=== PATIENT | male | born 1955 | race Caucasian/White ===

== ENCOUNTER 2019-11-03 08:49 | Emergency (ER) | payer OTHER ==
--- NOTE | 2019-11-03 10:43 | ER ---
Nurse's Notes [facility] Name: Benny Dukes Age: 63 yrs Sex: Male : 1955 Arrival Date: 11/03/2019 Time: 08:51 Bed 18 Private MD: Rishi Garcia Diagnosis: Malaise and fatigue Presentation: 11/03 09:02 Presenting complaint: Patient states: Body aches and scratchy throat that began ss yesterday. has been having similar symptoms x 4 days. Transition of care: patient was not received from another setting of care. Onset of symptoms was November 02, 2019. Risk Assessment: Do you want to hurt yourself or someone else? Patient reports no desire to harm self or others. Initial Sepsis Screen: Does the patient meet any 2 criteria? No. Patient's initial sepsis screen is negative. Does the patient have a suspected source of infection? No. Patient's initial sepsis screen is negative. Care prior to arrival: None. 09:02 Method Of Arrival: Ambulatory ss 09:02 Acuity: NICHOLAS 4 ss Historical: - Allergies: 09:03 No Known Allergies; ss - Immunization history:: Flu vaccine is not up to date. - Social history:: Smoking status: Patient/guardian denies using tobacco. - Ebola Screening: : Patient denies exposure to infectious person Patient denies travel to an Ebola-affected area in the 21 days before illness onset. Screenin:25 Abuse screen: Denies threats or abuse. Denies injuries from another. Nutritional wh screening: No deficits noted. Tuberculosis screening: No symptoms or risk factors identified. Fall Risk None identified. Assessment: 09:25 General: Appears in no apparent distress. Behavior is calm, cooperative, appropriate wh for age. Pain: Complains of pain in Sore throat. Neuro: Level of Consciousness is awake, alert, obeys commands, Oriented to person, place, time, situation, Appropriate for age. Cardiovascular: Heart tones S1 S2. Respiratory: Airway is patent Respiratory effort is even, unlabored, Respiratory pattern is regular, symmetrical, Breath sounds are clear bilaterally. GI: Abdomen is flat, non-distended. : No signs and/or symptoms were reported regarding the genitourinary system. EENT: Throat is pink. Derm: Skin is intact, is healthy with good turgor, Skin is pink, warm \T\ dry. normal. Musculoskeletal: Circulation, motion, and sensation intact. 10:21 Reassessment: Patient appears in no apparent distress at this time. No changes from previously documented assessment. Patient and/or family updated on plan of care and expected duration. Pain level reassessed. Patient is alert, oriented x 3, equal unlabored respirations, skin warm/dry/pink. Vital Signs: 09:03 BP 137 / 92; Pulse 90; Resp 17; Temp 98.3(TE); Pulse Ox 98% on R/A; Weight 86.18 kg; Height 5 ft. 6 in. (167.64 cm); 10:21 BP 130 / 71; Pulse 75; Resp 18; Pulse Ox 99% on R/A; wh 09:03 Body Mass Index 30.67 (86.18 kg, 167.64 cm) ED Course: 08:51 Patient arrived in ED. rg4 08:52 Rishi Garcia MD is Private Physician. 4 09:03 Triage completed. 09:03 Arm band placed on right wrist. 09:06 Celine Moncada is Primary Nurse. 09:10 Noah Shah FNP-C [facility]. la1 09:10 Jake Mccarty MD is Attending Physician. la1 09:25 Patient has correct armband on for positive identification. Bed in low position. Call light in reach. Side rails up X 1. Pulse ox on. NIBP on. 09:34 Flu and/or RSV swab sent to lab. Strep swab sent to lab. 5 09:34 Strep Sent. 5 09:34 Flu Sent. [facility] 10:59 No provider procedures requiring assistance completed. Patient did not have IV access during this emergency room visit. Administered Medications: No medications were administered Outcome: 10:43 Discharge ordered by . la1 10:59 Discharged to home ambulatory, with family. 10:59 Condition: stable 10:59 Discharge instructions given to patient, Instructed on discharge instructions, follow up and referral plans. POC URTI Demonstrated understanding of instructions, follow-up care, POC 11:00 Patient left the ED. Signatures: Deidre Roa, RN RN Noah Shah FNP-C FNP-Jewels Muller 4 Kerri Miles [facility] [place], [place] wh
--- NOTE | 2019-11-03 10:44 | EDPHYS ---
Physician Documentation [facility] Name: Benny Dukes Age: 63 yrs Sex: Male : 1955 Arrival Date: 11/03/2019 Time: 08:51 Bed 18 Private MD: Rishi Garcia ED Physician Jake Mccarty HPI: 11/03 09:39 This 63 yrs old Male presents to ER via Ambulatory with complaints of Body la1 Aches, Sore Throat. 09:39 Onset: The symptoms/episode began/occurred 2 day(s) ago. Associated signs and symptoms: la1 Pertinent negatives: abdominal pain, chest pain, constipation, fever, headache. Modifying factors: The patient symptoms are alleviated by nothing, the patient symptoms are aggravated by nothing. The patient has not experienced similar symptoms in the past. The patient has not recently seen a physician. pt reports body aches, malaise for the last two days. ill with similar symptoms. Historical: - Allergies: 09:03 No Known Allergies; ss - Immunization history:: Flu vaccine is not up to date. - Social history:: Smoking status: Patient/guardian denies using tobacco. - Ebola Screening: : Patient denies exposure to infectious person Patient denies travel to an Ebola-affected area in the 21 days before illness onset. ROS: 09:39 Constitutional: positive for malaise and body aches Eyes: Negative for injury, pain, la1 redness, and discharge, ENT: positive for sore throat Neck: Negative for injury, pain, and swelling, Cardiovascular: Negative for chest pain, palpitations, and edema, Respiratory: Negative for shortness of breath, cough, wheezing, and pleuritic chest pain, Abdomen/GI: Negative for abdominal pain, nausea, vomiting, diarrhea, and constipation, Back: Negative for injury and pain, MS/Extremity: Negative for injury and deformity, Neuro: Negative for headache, weakness, numbness, tingling, and seizure. Exam: 09:40 Constitutional: This is a well developed, well nourished patient who is awake, alert, la1 and in no acute distress. Head/Face: Normocephalic, atraumatic. Eyes: Pupils equal round and reactive to light, extra-ocular motions intact. Periorbital areas with no swelling, redness, or edema. ENT: Nares patent. No nasal discharge, no septal abnormalities noted. Tympanic membranes are normal and external auditory canals are clear. Oropharynx with no redness, swelling, or masses, exudates, or evidence of obstruction, uvula midline. Mucous membranes moist. Neck: Trachea midline no cervical lymphadenopathy. Supple, full range of motion without nuchal rigidity, or vertebral point tenderness. No Meningismus. Chest/axilla: Normal chest wall appearance and motion. Nontender with no deformity. No lesions are appreciated. Cardiovascular: Regular rate and rhythm with a normal S1 and S2. No gallops, murmurs, or rubs. Normal PMI, no JVD. No pulse deficits. Respiratory: Lungs have equal breath sounds bilaterally, clear to auscultation No rales, rhonchi or wheezes noted. No increased work of breathing, no retractions or nasal flaring. Abdomen/GI: Soft, non-tender, with normal bowel sounds. No distension or tympany. No guarding or rebound. No evidence of tenderness throughout. MS/ Extremity: Pulses equal, no cyanosis. Neurovascular intact. Full, normal range of motion. Neuro: Awake and alert, GCS 15, oriented to person, place, time, and situation. normal. Normal gait. Vital Signs: 09:03 BP 137 / 92; Pulse 90; Resp 17; Temp 98.3(TE); Pulse Ox 98% on R/A; Weight 86.18 kg; ss Height 5 ft. 6 in. (167.64 cm); 10:21 BP 130 / 71; Pulse 75; Resp 18; Pulse Ox 99% on R/A; wh 09:03 Body Mass Index 30.67 (86.18 kg, 167.64 cm) ss MDM: 09:10 Patient medically screened. la1 10:41 Data reviewed: vital signs, nurses notes, lab test result(s), and as a result, I will la1 discharge patient. Data interpreted: Pulse oximetry: on room air is 99 %. Interpretation: normal. Counseling: I had a detailed discussion with the patient and/or guardian regarding: lab results, the need for outpatient follow up, a family practitioner, to return to the emergency department if symptoms worsen or persist or if there are any questions or concerns that arise at home. ED course: PT instructed to FU with PCP, is without fevers. . 11/03 09:23 Order name: Flu la1 12/03 09:23 Order name: Strep la1 11/03 10:11 Order name: Throat Culture EDMS Administered Medications: No medications were administered Disposition: 14:21 Co-signature as Attending Physician, Jake Mccarty MD. rn Disposition: 11/03/19 10:43 Discharged to Home. Impression: Malaise and fatigue. - Condition is Stable. - Discharge Instructions: Sore Throat, Viral Respiratory Infection. - Medication Reconciliation Form, Thank You Letter form. - Follow up: Private Physician; When: 2 - 3 days; Reason: Recheck today's complaints, Re-evaluation by your physician. Follow up: Emergency Department; When: As needed; Reason: Fever > 102 F, Trouble breathing, Worsening of condition. Signatures: Dispatcher [employer] EDMS Jake Mccarty MD MD rn Smirch, Shelby, RN RN ss Attema, Lee, SILK OPENER-C SILK OPENER-Cla1 Celine Moncada Corrections: (The following items were deleted from the chart) 11:00 10:43 11/03/2019 10:43 Discharged to Home. Impression: Malaise and fatigue. Condition wh is Stable. Forms are Medication Reconciliation Form, Thank You Letter, Antibiotic Education, Prescription Opioid Use. Follow up: Private Physician; When: 2 - 3 days; Reason: Recheck today's complaints, Re-evaluation by your physician. Follow up: Emergency Department; When: As needed; Reason: Fever > 102 F, Trouble breathing, Worsening of condition. la1
[2019-11-03 11:34] VITALS: TEMP 98.3
[2019-11-03 11:35] VITALS: BP 130/71; O2SAT 99
== END 2019-11-03 11:00 | disposition home or self-care (01) ==
LOC: ER 08:49
DX: R53.83 Other fatigue (principal)
CPT/HCPCS: 87070; 87081; 87804; 99283

== ENCOUNTER 2021-11-27 08:26 | Day surgery (SDC) | payer OTHER ==
[2021-11-22 10:35] LABS: Absolute Lymphocytes (CBC) 3.5 K/uL (0.7-4.9); Basophils % 0.7 % (0-1.3); Hematocrit 42.8 % (39.6-49.0); Lymphocytes % 35.8 % (15.3-44.8); MPV 7.5 fL (7.6-11.3); RBC Red Blood Cell Count 4.69 M/uL (4.33-5.43)
[2021-11-22 10:44] LABS: Potassium 4.7 mmol/L (3.5-5.1)
--- NOTE | 2021-11-22 11:07 | RAD REPORT ---
EXAM DESCRIPTION: RAD - Chest Pa And Lat (2 Views) - 11/22/2021 10:20 am CLINICAL HISTORY: pre op pending hernia surgery Chest pain. COMPARISON: No comparisons FINDINGS: The lungs are clear. The heart is normal in size. No displaced fractures. IMPRESSION: No acute or concerning finding suspected.
[~2021-11-27 08:26] MED LIST: CEFAZOLIN/NS 1gm 1 GM/50 ML BAG IVPB SCH
[2021-11-27] MEDS: Ringers Lactate 1,000 ML IV ONE ×2 (08:46→09:27)
[2021-11-27] MEDS ORDERED: propofoL 200 MG/20 ML VIAL IV ONE (09:10)
[2021-11-27] MEDS ORDERED: MIDAZOLAM HCL 2 MG/2 ML INJ ONE (09:10)
[2021-11-27] MEDS ORDERED: FENTANYL CITR 100 MCG/2 ML ONE (09:10)
[2021-11-27] MEDS ORDERED: LIDOCAINE 2% MPF 5 ML VIAL ONE (09:11)
[2021-11-27] MEDS ORDERED: ROCURONIUM 50 MG/5 ML VIAL IV ONE (09:11)
[2021-11-27] MEDS ORDERED: BUPIVACAINE 0.5% Inj,MDV 50 mL VIAL ONE (09:16)
[2021-11-27] MEDS ORDERED: CEFAZOLIN/NS 1gm 1 GM/50 ML BAG ONE (09:17)
[2021-11-27] MEDS ORDERED: KETOROLAC 30 MG/ML INJ ONE (10:12)
[2021-11-27] MEDS ORDERED: dexAMETHasone 10 MG/ML VIAL ONE (10:12)
[2021-11-27] MEDS ORDERED: ONDANSETRON 4 MG/2 ML VIAL ONE (10:14)
[2021-11-27] MEDS ORDERED: GLYCOPYRROLATE 0.2 MG/ML SYR ONE (10:24)
[2021-11-27] MEDS ORDERED: NEOSTIGMINE 1 MG/ML -5 ML ONE (10:24)
[2021-11-27] MEDS ORDERED: HYDRALAZINE HCL 20 MG/ML VIAL ONE (10:54)
[2021-11-27] MEDS ORDERED: HYDROMORPHONE HCL 1 MG/ML INJ ONE (11:13)
[2021-11-27] MEDS ORDERED: TAMSULOSIN 0.4 MG SR CAP ONE (11:53)
[2021-11-27] MEDS ORDERED: CODEINE 30MG/APAP 300MG TAB ONE (11:54)
[2021-11-27 16:29] VITALS: BP 148/66; TEMP 97.4; O2SAT 98
--- NOTE | 2021-11-29 22:08 | OP ---
Date of Procedure: 11/27/2021 Surgeon: Ciro Miles MD Inspector Subassembly: ODETTE Jacome. Preoperative Diagnosis: Bilateral inguinal hernias, incarcerated. Postoperative Diagnosis: Bilateral inguinal hernias, incarcerated. Procedure: 1.Laparoscopic repair of incarcerated right inguinal hernia with mesh. 2.Laparoscopic repair of left inguinal hernia with mesh. Estimated Blood Loss: Less than 10 cc. Findings: Incarcerated omentum, both sides. Anesthesia: General plus local. Complications: None. Implant: 3D mesh, bilateral. Indications: This is a case of a 66-year-old patient, who come to us with bilateral inguinal hernias , tenderness, and discomfort, unable to be reduced. Benefits, alternatives, and risks of laparoscopi c possible open repair fully explained, which include, but not limited to infection, bleeding, damage to adjacent structures, anesthesia complication, recurrence, DE, and even . He also understand s this may not relieve the symptoms. He might need more than one surgical intervention. He understa nd also the possible use of mesh. Mesh placement pros and cons were discussed with the patient. All the questions were answered to the satisfaction and he did allow the use of the mesh and signed cons ent for it. Procedure In Detail: The patient was brought to the operating room and placed in supine position. A nesthesia was done without complication. A time-out was called. Abdomen and inguinal region were pr epped and draped in a sterile fashion. Marcaine 0.5% was injected for local anesthetic. First, inci cherry was done in the infraumbilical region. Incision was carried down to anterior rectus sheath. We opened the anterior rectus sheath, retracted muscle laterally to expose the posterior rectus sheath. The extraperitoneal space was gently developed with blunt dissection and a Spacemaker balloon-tippe d catheter placed in that area directed to the pubic symphysis. The scope was placed in that area. The balloon was inflated under direct visualization. After that, the balloon was deflated and we rem valerie the balloon in other area. We proceeded to introduce insufflation over that region. After that , scope once again was placed in. A 5 mm trocar was placed in the area about the pubic symphysis and another one senior care between the first and the second one. The preperitoneal space was further devel oped by exposing the inferior epigastric vessels and keeping them anterior. Robby's ligament was di ssected laterally to the junction with the iliac veins. The dissection continued inferiorly to the i liopubic tract avoiding damage to the femoral branch of the genitofemoral nerve and lateral femoral c utaneous nerve. The cord structures were carefully skeletonized. We dissected the hernia sac away f rom the spermatic cord structures. In order to have the omentum on it, that was reduced back into th e abdominal cavity. Also, the hernia sac was reduced back into the abdominal cavity. With the same technique, we proceeded to the opposite side. Once again, the hernia sac removed from the cord struc tures always protecting them and then after that, the omentum was reduced back into the abdominal cav ity and then, the hernia sac was also reduced back into the abdominal cavity. After that, we proceed ed to introduce a 3D mesh medium size. We did one side first and secured that mesh to cover direct a nd indirect spaces. The mesh was secured in place by tackling that mesh with a SorbaFix lateral and superior to the iliopubic tract and inferior and medial to the Robby's ligament. The same was done on the other side with the same coverage and the same fixation. We checked the area for any bleeding , no bleeding at this moment. At that moment, while holding the mesh in place, we proceeded to defla te the area carefully under direct visualization. After that, the trocars were removed. The anterio r rectus sheath was closed with #1 Vicryl and the skin was approximated. Sponge count and instrument counts were correct. The patient tolerated the procedure well. The patient was sent to Recovery in stable condition. At the end of the case, testicles were in the scrotum. Discharge Summary: Diagnosis: Incarcerated bilateral inguinal hernias. Procedure: Laparoscopic repair of right and left incarcerated inguinal hernias with mesh. Disposition: Home. Activity: As tolerated. No heavy lifting. Plan: Follow up in my office in 1 week. Call for appointment, [phone]. Keep area dry for 48 hours , then may shower. Keep Steri-Strip intact. Medications: For medications, see orders. HM/MODL Voice ID: [id number] Report ID: [id number]
== END 2021-11-27 16:26 | disposition home or self-care (01) ==
LOC: OR 08:26
PROVIDERS: ATTEND Surgery
PROC: 0YUA4JZ Supplement Bilateral Inguinal Region with Synthetic Substitute, Percutaneous Endoscopic Approach (ICD-10-PCS; principal; 2021-11-27 09:30)
DX: K40.20 Bilateral inguinal hernia, without obstruction or gangrene, not specified as recurrent (principal); Z20.822 Contact with and (suspected) exposure to COVID-19
CPT/HCPCS: 85025; 80048; 36415; 71046; 49650; U0002; J0360; J2704; J2250; J3010; J1100; J1170; J2710; J0690; J7120; J2405